=== PATIENT | male | born 1940 | race Caucasian/White ===

== ENCOUNTER → 2021-04-27 | Outpatient (CLI) | payer MEDICARE ==
--- NOTE | 2021-04-27 14:32 | RAD ---
EXAM: Head CT without contrast. HISTORY: Dizziness and giddiness. TECHNIQUE: Computed tomographic images of the head were obtained without contrast. *One or more of the following individualized dose reduction techniques were utilized for this examina tion: 1. Automated exposure control. 2. Adjustment of the mA and/or kV according to patient size. 3. Use of iterative reconstruction technique. COMPARISON: None. FINDINGS: There is no acute or subacute extra-axial or intraparenchymal hemorrhage. There is no mass effect or midline shift. There is no hydrocephalus. There are areas of decreased attenuation within the cerebral white matter, nonspecific and likely rel ated to chronic small vessel disease. There is age-appropriate cerebral volume loss. There is evidence of lens surgery. The visualized paranasal sinuses mastoid air cells are clear. Ther e is a 1.0 cm lesion within the deep lobe of the left parotid gland, partially included on the field- of-view. IMPRESSION: 1. No acute intracranial finding. Note is made that MRI is more sensitive for acute infarction. 2. Bilateral cerebral white matter changes, likely due to chronic small vessel disease. 3. 1.0 cm nodule or complicated cyst within the deep lobe of the left parotid gland. This can be bett er assessed with a nonemergent sonogram or contrast-enhanced neck CT. Electronically signed by: Desirae Martínez MD (04/27/2021 2:29 PM) [id number]
== END ==
LOC: CT 14:02
PROVIDERS: ATTEND Internal Medicine
DX: R90.82 White matter disease, unspecified (principal); E21.4 Other specified disorders of parathyroid gland
CPT/HCPCS: 70450

== ENCOUNTER 2021-07-30 22:03 | Emergency (ER) | payer MEDICARE ==
[~2021-07-30] VITALS: Ht 182.9 cm; Wt 85.9 kg
[2021-07-30] MEDS ORDERED: DEXAMETHASONE SOD PHOS 10 MG/ML VIAL. IV ONE (22:30)
[2021-07-30] MEDS ORDERED: ONDANSETRON PF 4 MG/2 ML VIAL. IVP ONE (22:30)
[2021-07-30] MEDS ORDERED: IV NORMAL SALINE 1,000ML 1,000 ML IV ONE (23:00)
--- NOTE | 2021-07-30 23:07 | RAD ---
XR CHEST 1V Clinical Indication: Reason: cough Comparison: CT chest with contrast August 01, 2011. Findings: There is cardiac valve prosthesis. Median sternotomy wires. Cardiac size upper limits of normal. Inte rstitial markings are diffusely increased. There is no pneumothorax. No pleural effusion is appreciat ed. No acute bone abnormality. IMPRESSION: Diffusely increased interstitial markings. Considerations include pulmonary edema, interstitial pneum onia, or chronic interstitial lung disease. Electronically signed by: Omari Gray MD (07/30/2021 11:05 PM) [facility]
--- NOTE | 2021-07-30 23:20 | PHYS DOC ---
General Adult EDM: Chief Complaint: SHORTNESS OF BREATH HPI: HPI: 80 year old male presents with cough. His symptoms started approximately 3 hours ago when he started feeling a sandpaper-like sensation in the back of his throat which triggered coughing fits. He has associated nasal congestion and nova, s tringy mucus with his cough. He tried taking cough drops, but did not have any improvement of his symptoms. He also noticed increased salivation with the cough drops which concerned him. The coughing fits are accompanied by shortness of breath which is not present when he is not coughing. He has not noticed any worsening of symptoms when laying down, lower extremity swelling, or chest pain with his symptoms. Review of Systems: Review of Systems: Constitutional: Denies fever or chills Eyes: Denies redness or eye pain HENT: Reports nasal congestion, denies sore throat Respiratory: Reports cough and shortness of breath Cardiovascular: Denies chest pain or palpitations GI: Denies abdominal pain, nausea, or vomiting : Denies dysuria or hematuria Musculoskeletal: Reports chronic back pain, denies joint pain Integument: Denies rash or skin lesions Neurologic: Denies headache, focal weakness or sensory changes Complete systems were reviewed and found to be within normal limits, except as documented in this note. Current Medications: Current Meds: Current Medications Medications (Trade) Dose Ordered Sig/[facility] Start Time Stop Time Status Last Admin Dose Admin Dexamethasone Sodium Phosphate (Decadron) 10 mg 1X ONCE 07/30/21 22:30 07/30/21 22:31 UNV Ondansetron HCl (Zofran) 4 mg 1X ONCE 07/30/21 22:30 07/30/21 22:31 UNV Sodium Chloride 1,000 ml @ 1,000 mls/hr 1X ONCE 07/30/21 22:15 07/30/21 23:14 UNV Physical Exam: PE: Constitutional: Well developed, well nourished, mild distress about origin of cough, non-toxic appearance HENT: Normocephalic, atraumatic. Pale nasal mucosa. Erythema with cobblestoning of the posterior pharynx. No lymphadenopathy present. Tympanic membrane intact without erythema, fluid, or bulging bilaterally. Eyes: Conjunctiva normal, no discharge Neck: Normal range of motion, no tenderness, supple Lungs & Thorax: No respiratory distress, equal chest rise and fall, lungs clear to auscultation bilaterally with no concerning breath sounds. Cardiovascular: Irregular rate and rhythm without murmur appreciated. Irregular pulse and 2/4 pulses of both radial arteries bilaterally. 1+ pretibial edema bilaterally. Abdomen: Soft, no tenderness Skin: Warm, dry, no erythema, no rash Extremities: No tenderness, ROM intact, 1+ pitting edema bilaterally. Neurologic: Alert and oriented X 3, normal motor function, normal sensory function, no focal deficits noted Psychologic: Affect normal, judgment normal EKG: EKG: @10:20 pm. Atrial fibrillation at an average rate of 90 bpm, left axis deviation, QRS 94, QT/QTc 362/447.[] Radiology/Procedures: Radiology/Procedures: PROCEDURE: CHEST AP ONLY XR CHEST 1V Clinical Indication: Reason: cough Comparison: CT chest with contrast August 01, 2011. Findings: There is cardiac valve prosthesis. Median sternotomy wires. Cardiac size upper limits of normal. Interstitial markings are diffusely increased. There is no pneumothorax. No pleural effusion is appreciated. No acute bone abnormality. IMPRESSION: Diffusely increased interstitial markings. Considerations include pulmonary edema, interstitial pneumonia, or chronic interstitial lung disease. Electronically signed by: Omari Gray MD (07/30/2021 11:05 PM) [facility] Heart Score: C/O Chest Pain: N/A Course & Med Decision Making: Course & Med Decision Making Pertinent Labs and Imaging studies reviewed. (See chart for details) 80 year old male presented with cough and shortness of breath. Upon arriving to the ED, he was hydrated with fluids and given ondansetron for nausea. He also received dexamethasone to help improve his breathing and reduce pharyngeal inflammation. Appropriate imaging with a CXR was acquired to assess lungs with no signs of pulmonary infection or congestion. Infectious etiology was further assessed with covid and influenza swabs which were both negative. He also had a lactic acid and magnesium level drawn to evaluate for sepsis which came back normal. He had a U/A completed showing no signs of a UTI. Cardiac causes of shortness of breath were evaluated with a CKMB, Troponin, and Pro-BNP. His cardiac enzymes came back normal with a mildly elevated pro-BNP without significant clinical findings for heart failure. Since the patient is on Warfarin a protime was obtained and demonstrated a therapeutic rise in PT and PTT. A CMP was drawn to look for any potential metabolic abnormalities which showed no significant abnormalities pertinent to his cheif complaint of cough with shortness of breath. Patient stable for discharge with outpatient follow-up with PCP. Discussed findings and plan with patient, who acknowledges understanding and agreement. Anabel Disclaimer: Anabel Disclaimer: This electronic medical record was generated, in whole or in part, using a voice recognition dictation system. Departure Departure: Impression: Primary Impression: Upper respiratory infection Qualified Codes: J06.9 - Acute upper respiratory infection, unspecified Disposition: HOME / SELF CARE / HOMELESS Condition: STABLE Referrals: VANDANA MCCULLOUGH MD (PCP) Patient Instructions: Upper Respiratory Infection, Adult, [id number] Additional Instructions: Use bedside humidifier while sleeping. Scripts Prednisone (PREDNISONE) 20 Mg Tablet 2 TAB PO DAILY for URI for 4 Days, #8 TAB Prov: SIMEON ORTEGA DO 07/31/21 SIMEON ORTEGA DO Jul 30, 2021 23:20
[2021-07-30 23:41] LABS: BASO % 0 % (0-3); EOS # 0.1 x10^3/uL (0.0-0.7); EOS % 2 % (0-3); HEMATOCRIT 39.3 % (39.0-53.0); HEMOGLOBIN 13.3 g/dL (13.0-17.5); LYMPH # 1.1 x10^3/uL (1.0-4.8); LYMPH % 25 % (24-48); MEAN CORPUSCULAR HEMOGLOBIN 34 pg (25-35); MEAN CORPUSCULAR HGB CONC 34 g/dL (31-37); MEAN CORPUSCULAR VOLUME 100 fL (79-100); MONO # 0.6 x10^3/uL (0.0-1.1); MONO % 14 % (0-9); NEUT # 2.5 x10^3uL (1.8-7.7); NEUT % 59 % (31-73); PLATELET COUNT 117 x10^3/uL (140-400); RED BLOOD COUNT 3.93 x10^6/uL (4.30-5.70); RED CELL DISTRIBUTION WIDTH 13.2 % (11.5-14.5); WHITE BLOOD COUNT 4.3 x10^3/uL (4.0-11.0)
[2021-07-30 23:44] LABS: BACTERIA,URINE 0 /HPF (0-FEW); BILIRUBIN,URINE NEG (NEG); CLARITY,URINE CLEAR; COLOR,URINE YELLOW; GLUCOSE,URINE NEG (NEG); NITRITE,URINE NEG (NEG); RBC,URINE 0 /HPF (0-2); SQUAMOUS EPITHELIAL CELL,UR OCC /LPF; UROBILINOGEN,URINE 0.2 mg/dL (0.2 mg/dL); WBC,URINE RARE /HPF (0-4)
[2021-07-30 23:46] LABS: CALCIUM 8.8 mg/dL (8.5-10.1); CREATININE 0.8 mg/dL (0.7-1.3); GFR 92.5; POTASSIUM 3.9 mmol/L (3.5-5.1)
[2021-07-30 23:53] LABS: INFLUENZA A PATIENT NEGATIVE (NEGATIVE); INFLUENZA B PATIENT NEGATIVE (NEGATIVE)
[2021-07-31 00:03] LABS: ALBUMIN 3.9 g/dL (3.4-5.0); ALBUMIN/GLOBULIN RATIO 1.3 (1.0-1.7); MAGNESIUM 2.1 mg/dL (1.8-2.4); TOTAL BILIRUBIN 0.6 mg/dL (0.2-1.0); TOTAL PROTEIN 6.9 g/dL (6.4-8.2)
[2021-07-31 00:11] VITALS: BP 141/57
--- NOTE | 2021-07-31 00:14 | EKG ---
[address] [address] Test Date: 2021-07-30 Test Time: 22:17:54 Pat Name: TOMMIE BEDOYA Department: Room: Gender: M Last Sorter: : 1940 Requested By: SIMEON ORTEGA Order Number: [id number] Reading MD: Demetrio Drake MD Measurements Intervals [place] Rate: 90 P: MT: QRS: -28 QRSD: 94 T: 52 QT: 362 QTc: 447 Interpretive Statements ATRIAL FIBRILLATION - PROBABLE Electronically Signed On 07-31-2021 12:35:19 [employer] by Demetrio Drake MD
[2021-07-31] MEDS ORDERED: PRED20TA PO (00:22)
== END 2021-07-31 00:40 | disposition home or self-care (01) ==
LOC: ER 22:03
DX: J06.9 Acute upper respiratory infection, unspecified (principal); Z20.822 Contact with and (suspected) exposure to COVID-19
CPT/HCPCS: 36415; 71045; 80053; 81001; 82553; 83605; 83735; 83880; 84484; 85025; 85610; 85730; 87426; 87804; 93005; 96361; 96374; 96375; 99285; C9803; J1100; J2405; J7030; U0003

== ENCOUNTER 2021-09-05 09:56 | Emergency (ER) | payer MEDICARE ==
[~2021-09-05] VITALS: Ht 182.9 cm; Wt 85.9 kg
[~2021-09-05 09:56] MED LIST: PRED20TA PO
[2021-09-05 11:02] VITALS: BP 100/56
--- NOTE | 2021-09-05 11:09 | PHYS DOC ---
Past History Additional Past Medical Histor: back problems, poor historian (takes 14 pills) Past Surgical History: Other Additional Past Surgical Histo: aortic valve replacemnt (on coumadin) Alcohol Use: None General Adult EDM: Chief Complaint: MECHANICAL FALL HPI: HPI: Patient is an 80-year-old male on blood thinners who presents with occipital head pain, back pain and rib pain status post fall at home. Patient states he was taking out the trash, when he lost his footing and he fell backwards onto his upper back and the back of his head. His thoracic wall pain is exacerbated by deep breathing and movement of any kind. Patient used to be on Coumadin, but his blood thinner was recently changed. He does not recall the name of his new blood thinner medication. Patient denies loss of consciousness, nausea and vomiting. Review of Systems: Review of Systems: Constitutional: Denies fever, chills or generalized weakness Eyes: Denies change in visual acuity, visual field deficits or discharge HENT: Denies ear pain, nasal congestion or sore throat Respiratory: Denies cough or shortness of breath Cardiovascular: Denies chest pain, palpitations or edema GI: Denies abdominal pain, nausea, vomiting, bloody stools or diarrhea : Denies dysuria or hematuria Musculoskeletal: See HPI Integument: Denies rash or other skin lesion Neurologic: See HPI Allergies: Allergies: Allergies Uncoded Allergies Type Severity Reaction Last Updated Verified aliyah Allergy Unknown 07/30/21 Physical Exam: PE: Constitutional: Well developed, well nourished, no acute distress, non-toxic appearance. HENT: Normocephalic, atraumatic, bilateral external ears without deformity/ecchymosis or discharge, oropharynx moist, no oral exudates, nose without deformity or epistaxis. Eyes: PERRLA, EOMI, conjunctiva normal, no discharge. Neck: Normal range of motion, no step-off, no tenderness, supple, no stridor. Cardiovascular: No obvious murmurs, rubs. Lungs & Thorax: Bilateral breath sounds clear to auscultation though diffusely diminished. Chest wall diffusely tender to palpation without crepitus. Abdomen: Bowel sounds normal, soft, no tenderness, no masses, no pulsatile masses. Skin: Warm, dry, no erythema, no rash, no abrasion, no laceration. Back: No step-off, midline tenderness midthoracic back, no paraspinal muscle spasm. Extremities: No tenderness, no cyanosis, no clubbing, ROM intact, no edema, no deformity. Neurologic: Alert and oriented x3, no focal deficits noted. Radiology/Procedures: Radiology/Procedures: PROCEDURE: CT HEAD AND CERVICAL SPINE WO Examination: CT head and cervical spine without contrast CT HEAD INDICATION: fall from standing, on blood thinners COMPARISON: 04/27/2021. Exposure: One or more of the following individualized dose reduction techniques were utilized for this examination: 1. Automated exposure control 2. Adjustment of the mA and/or kV according to patient size 3. Use of iterative reconstruction technique TECHNIQUE: 5 mm contiguous axial images were obtained from the skull base to the vertex in both bone and soft tissue algorithm. FINDINGS: Mild bilateral periventricular white matter hypodensities likely chronic small vessel ischemic disease. Punctate the 3 mm hypodensity identified in the left cerebellum probably old infarct similar to prior exam. No evidence of acute intracranial hemorrhage. No extra-axial fluid collections. No mass effect or midline shift. Ventricular size is appropriate. Basal cisterns are patent. No fractures identified.Goins-white differentiation is preserved.Globes and orbits are within normal limits. Paranasal sinuses and mastoid air cells are clear. CT CERVICAL SPINE INDICATION: Reason: fall from standing, on blood thinners / Spl. Instructions: / History: COMPARISON: None Available. Technique: 2.5 mm contiguous axial images were obtained from the skull base through the cervicothoracic junction in both bone and soft tissue algorithm. Additional sagittal and coronal reconstructions were also performed. FINDINGS: Vertebral body height and alignment are maintained. Cervical lordosis is preserved. The lateral masses of C1 are aligned upon C2. No fractures identified. The bony canal is patent throughout. Moderate intervertebral disc height loss identified in cervical spine throughout most at C5-C6, C6-C7 with anterior and posterior osteophytes. The paraspinous soft tissues are unremarkable. Visualized intracranial contents are unremarkable. Lung apices are clear. IMPRESSION: 1. No acute intracranial findings. 2. Punctate 3 mm hypodensity identified in the left cerebellum probably old infarct similar to prior exam. 3. No acute fracture cervical spine. 4. Moderate degenerative changes cervical spine. Electronically signed by: Etienne Ribeiro MD (09/05/2021 1:44 PM) [id number] PROCEDURE: CT THORACIC SPINE RECONSTRUCT EXAMINATION: CT Chest With IV contrast. CT thoracic spine reconstruction. INDICATION:80 years, Male, fall from standing, midline tenderness, rib pain. COMPARISON: CT chest dated 08/01/2011. TECHNIQUE: Spiral CT was obtained from the jugular notch through the posterior costophrenic recess. 3-D MIPS, sagittal and coronal reformats were obtained. Thoracic spine reconstruction with axial, coronal and sagittal planes performed. Exposure: One or more of the following individualized dose reduction techniques were utilized for this examination: 1. Automated exposure control 2. Adjustment of the mA and/or kV according to patient size 3. Use of iterative reconstruction technique. FINDINGS: LUNGS/PLEURA: Central airways are patent. Minimal centrilobular and paraseptal emphysema. Dependent subsegmental atelectasis in bibasilar lungs. No focal consolidation, pleural effusion or pneumothorax. There is a 3 mm pleural-based nodule in the left upper lobe. There is a 3 mm solid pulmonary nodule in the right upper lobe (series 4 image 29). Calcified granuloma in the right upper lobe. MEDIASTINUM: No pathologic mediastinal or hilar adenopathy. The thoracic aorta and pulmonary arteries are normal in caliber. Cardiomegaly with enlarged right atrium. Aortic valve replacement. No pericardial effusion. No detectable calcified coronary atherosclerosis. The visualized thyroid and the esophagus are unremarkable. Distended tortuous vessel in the prevascular space draining to the left brachiocephalic vein and left atrium, most consistent with persistent left- sided SVC with right to left shunt. AXILLA/SOFT TISSUE: No supraclavicular or axillary adenopathy. Regional soft tissues are within normal limits. UPPER ABDOMEN: The visualized upper abdomen appears unremarkable. BONES INCLUDING THORACIC SPINE: Diffuse osteopenia which limits evaluation for nondisplaced fracture. The vertebral bodies of the thoracic spine are normal in height and alignment. No acute fracture or subluxation. Extensive kyphosis. Severe multilevel degenerative changes with disc space narrowing and bridging osteophytes, compatible with DISH. No paravertebral soft tissue swelling. No intraspinal hematoma. No acute displaced fracture in the left. Median sternotomy wires. IMPRESSION: 1. Diffuse osteopenia which limits evaluation for nondisplaced fracture. No acute osseous process in the thoracic spine. 2. Severe multilevel degenerative changes with DISH. 3. No acute traumatic injury to the chest. 4. 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 5. Two small pulmonary nodules measuring up to 3 mm. Electronically signed by: Pratima Gary MD (09/05/2021 2:41 PM) [facility] Heart Score: C/O Chest Pain: No Course & Med Decision Making: Course & Med Decision Making Pertinent Labs and Imaging studies reviewed. (See chart for details) Patient is an 80-year-old male on blood thinners who had a mechanical fall at home. He was in his driveway, taking out the trash when his feet fell from under him. He states he fell on his mid back and hit the back of his head with out loss of consciousness. Work-up today will include CT imaging without contrast of head and neck, CT imaging of chest and thoracic spine with contrast. Imaging studies are all negative for obvious acute injury. Patient has pain medication at home prescribed for chronic back pain. He should continue taking these medications as prescribed. Patient was informed of multiple pulmonary nodule seen on CT scan, for which she can follow with his primary care provider. He can also follow-up with his primary care provider regarding any further discomfort related to the fall. Patient is given return precautions for worsening pains or any new symptoms. He understands and is agreeable to discharge plan. Dragon Disclaimer: [employer] Disclaimer: This electronic medical record was generated, in whole or in part, using a voice recognition dictation system. Departure Departure: Impression: Primary Impression: Fall from standing Qualified Codes: W19.XXXA - Unspecified fall, initial encounter Additional Impressions: Head contusion Qualified Codes: S00.83XA - Contusion of other part of head, initial en counter Contusion of bilateral back wall of thorax, initial encounter Chronic back pain Qualified Codes: M54.6 - Pain in thoracic spine; G89.29 - Other chronic pain Lung nodule < 6cm on CT Disposition: 01 HOME / SELF CARE / HOMELESS Condition: STABLE Referrals: VANDANA MCCULLOUGH MD (PCP) Patient Instructions: Contusion, [id number], Pulmonary Nodule, [id number] Additional Instructions: EMERGENCY DEPARTMENT GENERAL DISCHARGE INSTRUCTIONS Thank you for coming to [facility] (ED) today and trusting us with you care. We trust that you had a positivie experience in our Emergency Department. If you wish to speak to the department management, you may call the director at [phone]. YOUR FOLLOW UP INSTRUCTIONS ARE FOLLOWS: 1. Continue taking your pain medications you have at home as prescribed. 2. The Emergency Physician has interpreted your CT scans. The customer success specialist also reviewed them. If there is a change in the findings, you will be notified in 48 hours when at all possible. ADDITIONAL INSTRUCTIONS AND INFORMATION: 1. Your care today has been supervised by a physician who is specially trained in emergency care. Many problems require more than one evaluation for a complete diagnosis and treatment. We recommend that you schedule your follow up appointment as recommended to ensure complete treatment of you illness or injury. If you are unable to obtain follow up care and continue to have a problem, or if your condition worsens, we recommend that you return to the ED. 2. We are not able to safely determine your condition over the phone nor are we able to give sound medical advice over the phone. For these safety reasons, if you call for medical advice we will ask you to come to the ED for further evaluation. 3. If you have any questions regarding these discharge instructions please call the ED at . SAFETY INFORMATION: In the interest of safety, wellness, and injury prevention; we encourage you to wear your seat belt, if you smoke; quite smoking, and we encourage family to use a protective helmet for bicycling and other sporting events that present an increased risk for head injury. IF YOUR SYMPTOMS WORSEN OR NEW SYMPTOMS DEVELOP, OR YOU HAVE CONCERNS ABOUT YOUR CONDITION; OR IF YOUR CONDITION WORSENS WHILE YOU ARE WAITING FOR YOUR FOLLOW UP APPOINTMENT; EITHER CONTACT YOUR PRIMARY CARE DOCTOR, THE PHYSICIAN WHOSE NAME AND NUMBER YOU WERE GIVEN, OR RETURN TO THE ED IMMEDIATELY. GURJIT LOVELACE Sep 05, 2021 11:09
[2021-09-05] MEDS ORDERED: traMADol 50 MG TABLET PO ONE (12:00)
[2021-09-05] MEDS ORDERED: IOHEXOL 300 MG/ML 75 ML VIAL. IV ONE (12:00)
[2021-09-05 12:45] LABS: CALCIUM 8.7 mg/dL (8.5-10.1); CREATININE 0.8 mg/dL (0.7-1.3); GFR 92.5; POTASSIUM 3.7 mmol/L (3.5-5.1)
--- NOTE | 2021-09-05 13:46 | RAD ---
Examination: CT head and cervical spine without contrast CT HEAD INDICATION: fall from standing, on blood thinners COMPARISON: 04/27/2021. Exposure: One or more of the following individualized dose reduction techniques were utilized for thi s examination: 1. Automated exposure control 2. Adjustment of the mA and/or kV according to patient size 3. Use of iterative reconstruction technique TECHNIQUE: 5 mm contiguous axial images were obtained from the skull base to the vertex in both bone and soft tissue algorithm. FINDINGS: Mild bilateral periventricular white matter hypodensities likely chronic small vessel ischemic diseas e. Punctate the 3 mm hypodensity identified in the left cerebellum probably old infarct similar to prior exam. No evidence of acute intracranial hemorrhage. No extra-axial fluid collections. No mass effect or midline shift. Ventricular size is appropriate. Basal cisterns are patent. No fractures identified.Goins-white differentiation is preserved.Globes and orbits are within normal l imits. Paranasal sinuses and mastoid air cells are clear. CT CERVICAL SPINE INDICATION: Reason: fall from standing, on blood thinners / Spl. Instructions: / History: COMPARISON: None Available. Technique: 2.5 mm contiguous axial images were obtained from the skull base through the cervicothorac ic junction in both bone and soft tissue algorithm. Additional sagittal and coronal reconstructions were also performed. FINDINGS: Vertebral body height and alignment are maintained. Cervical lordosis is preserved. The l ateral masses of C1 are aligned upon C2. No fractures identified. The bony canal is patent throughout. Moderate intervertebral disc height loss identified in cervical spine throughout most at C5-C6, C6-C7 with anterior and posterior osteophytes. The paraspinous soft tissues are unremarkable. Visualized intracranial contents are unremarkable. L marianne apices are clear. IMPRESSION: 1. No acute intracranial findings. 2. Punctate 3 mm hypodensity identified in the left cerebellum probably old infarct similar to prior exam. 3. No acute fracture cervical spine. 4. Moderate degenerative changes cervical spine. Electronically signed by: Etienne Ribeiro MD (09/05/2021 1:44 PM) [id number]
--- NOTE | 2021-09-05 14:43 | RAD ---
EXAMINATION: CT Chest With IV contrast. CT thoracic spine reconstruction. INDICATION:80 years, Male, fall from standing, midline tenderness, rib pain. COMPARISON: CT chest dated 08/01/2011. TECHNIQUE: Spiral CT was obtained from the jugular notch through the posterior costophrenic recess. 3 -D MIPS, sagittal and coronal reformats were obtained. Thoracic spine reconstruction with axial, francisco nal and sagittal planes performed. Exposure: One or more of the following individualized dose reduction techniques were utilized for thi s examination: 1. Automated exposure control 2. Adjustment of the mA and/or kV according to patient size 3. Use of iterative reconstruction technique. FINDINGS: LUNGS/PLEURA: Central airways are patent. Minimal centrilobular and paraseptal emphysema. Dependent s ubsegmental atelectasis in bibasilar lungs. No focal consolidation, pleural effusion or pneumothorax. There is a 3 mm pleural-based nodule in the left upper lobe. There is a 3 mm solid pulmonary nodule in the right upper lobe (series 4 image 29). Calcified granuloma in the right upper lobe. MEDIASTINUM: No pathologic mediastinal or hilar adenopathy. The thoracic aorta and pulmonary arteries are normal in caliber. Cardiomegaly with enlarged right atrium. Aortic valve replacement. No pericar dial effusion. No detectable calcified coronary atherosclerosis. The visualized thyroid and the esoph torey are unremarkable. Distended tortuous vessel in the prevascular space draining to the left brachi ocephalic vein and left atrium, most consistent with persistent left-sided SVC with right to left chitra nt. AXILLA/SOFT TISSUE: No supraclavicular or axillary adenopathy. Regional soft tissues are within robbin l limits. UPPER ABDOMEN: The visualized upper abdomen appears unremarkable. BONES INCLUDING THORACIC SPINE: Diffuse osteopenia which limits evaluation for nondisplaced fracture. The vertebral bodies of the thoracic spine are normal in height and alignment. No acute fracture or subluxation. Extensive kyphosis. Severe multilevel degenerative changes with disc space narrowing and bridging osteophytes, compatible with DISH. No paravertebral soft tissue swelling. No intraspinal he matoma. No acute displaced fracture in the left. Median sternotomy wires. IMPRESSION: 1. Diffuse osteopenia which limits evaluation for nondisplaced fracture. No acute osseous process in the thoracic spine. 2. Severe multilevel degenerative changes with DISH. 3. No acute traumatic injury to the chest. 4. 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 5. Two small pulmonary nodules measuring up to 3 mm. Electronically signed by: Pratima Gary MD (09/05/2021 2:41 PM) [facility]
[2021-09-05] MEDS ORDERED: HYDROcodone/APAP 5/325MG 1 TAB TABLET PO ONE (14:45)
== END 2021-09-05 16:11 | disposition home or self-care (01) ==
LOC: ER 09:56
DX: S00.93XA Contusion of unspecified part of head, initial encounter (principal); S20.223A Contusion of bilateral back wall of thorax, initial encounter; G89.29 Other chronic pain; M54.6 Pain in thoracic spine; R91.1 Solitary pulmonary nodule; Z88.8 Allergy status to other drugs, medicaments and biological substances; W18.39XA Other fall on same level, initial encounter; Y93.89 Activity, other specified; Y92.098 Other place in other non-institutional residence as the place of occurrence of the external cause; Y99.8 Other external cause status
CPT/HCPCS: 36415; 70450; 71260; 72125; 76376; 80048; 99285; Q9967